=== PATIENT | male | born 1960 | race Caucasian/White ===

== ENCOUNTER 2024-05-15 14:37 | Emergency (ER) | payer OTHER, SELFPAY ==
[2024-05-15 14:42] VITALS: BP 145/78
[2024-05-15 14:58] LABS: % Basophils 0.6 % (0-2); % Immature Granulocytes 0.2 % (0-0.5); % Lymphocytes 14.1 % (20.5-51.1); % Monocytes 5.2 % (1.7-9.3); % Neutrophils 77.9 % (42.2-75.2); Absolute Basophils 0.1 10^3/uL (0-0.2); Absolute Eosinophils 0.3 10^3/uL (0-0.7); Absolute Lymphocytes 1.8 10^3/uL (1.2-3.4); Absolute Monocytes 0.7 10^3/uL (0.1-0.6); Absolute Neutrophils 9.8 10^3/uL (1.4-6.5); Hematocrit 45.7 % (39.0-52.0); Hemoglobin 16.2 g/dL (13.0-18.0); Mean Corp Hgb Conc. 35.4 g/dL (33.0-37.0); Mean Corpuscular Volume 87.5 fL (80.0-94.0); Mean Platelet Volume 10.1 fL (7.4-10.4); Nucleated Red Blood Cells % 0 % (-); Platelet Count 165 10^3/uL (130-400); Red Blood Cell Count 5.22 10^6/uL (4.70-6.10); White Blood Cell Count 12.5 10^3/uL (4.8-10.8)
[2024-05-15 15:13] LABS: ALT (SGPT) 58 U/L (0-50); AST (SGOT) 34 U/L (17-59); Albumin 4.4 g/dl (3.5-5.0); Alkaline Phosphatase 68 U/L (38-126); Blood Urea Nitrogen 24 mg/dl (9-20); Calcium 9.5 mg/dl (8.4-10.2); Carbon Dioxide 28 mmol/L (22-30); Chloride 105 mmol/L (98-107); Glucose 121 mg/dl (70-99); Potassium 4.7 mmol/L (3.5-5.1); Sodium 142 mmol/L (135-145); Total Bilirubin 1.7 mg/dl (0.2-1.3); Total Protein 7.3 g/dl (6.3-8.2); eGFR > 60.00
[2024-05-15 15:23] LABS: Troponin I < 0.012 ng/ml
[2024-05-15 17:04] VITALS: BP 147/88
--- NOTE | 2024-05-15 17:54 | ED.GENMED ---
History of Present Illness
General
Chief Complaint: Chest Pain
Source: patient
Exam Limitations: none
Time Seen by Provider: 05/15/24 17:02
Nursing documentation reviewed up to this point in time: agreed with
History of Present Illness
History of Present Illness:
The patient is a pleasant 64-year-old male with history GERD, asthma presenting to the emergency department for evaluation of chest pain.. He describes it as a tightness in his left chest, which is essentially constant and not exertional or
pleuritic in nature. Patient states he gets a similar chest pain every spring and fall season and is wondering if it is allergy related. However � this time he has a little bit of pain into his left arm and left neck, which made him concerned as he
has not had those symptoms before. Patient denies any associated fever, cough, shortness of breath, lightheadedness, diaphoresis, or back pain. He has been able to exercise at the gym to full capacity and was golfing yesterday and remained
asymptomatic. Patient states he was seen by a card placer a few years ago with a negative work up.
Patient states his father did have a heart attack in his 70s, otherwise no known family history.
Past History
Past History
ED Past Medical History: Asthma and GERD
Social History
Tobacco: Non-smoker
Personal:
Living: with family
Employment: Employed
Review of Systems
Review of Systems
Allergies reviewed?: Yes
All Other Systems: ROS reviewed and negative except as documented in HPI and ROS
Phy Exam
Physical Exam
Physical Exam:
Vitals: Hypertensive, otherwise vital signs stable. Afebrile
General: Patient is well appearing, no acute distress
Skin: Warm and dry, no rashes or lesions
Head: Normocephalic, atraumatic
Eyes: Sclera nonicteric. EOMs intact. No nystagmus.
Throat: Protecting airway
Neck: Normal ROM, no cervical spine tenderness, no meningismus. No JVD
Cardiac: Regular rate and rhythm, no murmurs. No reproducible chest wall tenderness. No rash
Pulm: Normal respiratory effort, no wheezes, rales, rhonchi heard on exam.
Abdomen: No abdominal tenderness.
Extremities: No evidence of cyanosis or edema. 2+ radial pulses bilaterally.
Neuro: AAOx3. Grossly intact.
Psychiatric: Normal affect.
Scores
Heart Score for Chest Pain Patients
STEMI patient?: No
History: Slightly or Non-Suspicious
ECG: Normal
Age: >45 - <65 years
Risk Factors: 1 or 2 Risk Factors
Troponin: </= Normal Limit
Heart Score for Chest Pain Patients: 2
Heart Score Risk: 2.5% MACE over next 6 weeks
Course
Orders/Labs/Results
Orders:
Orders
05/15/24 14:38
Electrocardiogram (*1) Urgent
Reason for Study: Chest Pain
EKG- Treatment ONCE
05/15/24 14:48
Complete Blood Count/With Diff Urgent
Comprehensive Metabolic Panel Urgent
Troponin I Urgent
05/15/24 17:21
EKG- Treatment ONCE
05/15/24 17:22
CR Chest - 2 Views Urgent
Comment:
Reason For Exam: left sided chest tightness
05/15/24 17:46
Troponin I Urgent
05/15/24 17:50
Electrocardiogram (*1) Urgent
Reason for Study: Chest Pain
Abnormal Lab Results
05/15/24
14:48
WBC 12.5 H 10^3/uL
(4.8-10.8)
Absolute Neuts (auto) 9.8 H 10^3/uL
(1.4-6.5)
Absolute Monos (auto) 0.7 H 10^3/uL
(0.1-0.6)
Neutrophils % 77.9 H %
(42.2-75.2)
Lymphocytes % 14.1 L %
(20.5-51.1)
BUN 24 H mg/dl
(9-20)
Glucose 121 H mg/dl
(70-99)
Total Bilirubin 1.7 H mg/dl
(0.2-1.3)
ALT 58 H U/L
(0-50)
05/15/24 14:48
05/15/24 14:48
Vital Signs
Initial and Last Documented VS:
Initial Vital Signs
Temp Pulse Resp BP Pulse Ox
98.0 F 69 16 145/78 98
05/15/24 14:42 05/15/24 14:42 05/15/24 14:42 05/15/24 14:42 05/15/24 14:42
Last Documented Vital Signs
Temp Pulse Resp BP Pulse Ox
98.0 F 69 20 147/88 95
05/15/24 14:42 05/15/24 17:45 05/15/24 17:45 05/15/24 17:04 05/15/24 17:45
MDM/Problems Addressed
Differential Diagnosis Includes:
Not limited to: muscular strain, pericarditis, asthma exacbertion, hay fever, acute coronary syndrome, zoster, etc
MDM/Problems Addressed:
64 y.o male w/ history as documented presenting with atypical chest pain. No exertional or pleuritic component to symptoms. No associated shortness of breath, lightheadedness, diaphoresis. No fever or cough. Vitals and physical exam as above.
Patient very well appearing, in no distress. Heart is regular, lungs are clear. He has no reproducibl chest tenderness. No carotid tenderness bilaterally. He has 2+ radial pulses bilaterally and no evidence of LE edema on exam. Basic labs were sent
off in triage significant for a leukocytosis of 12.5. No other clinically significant abnormalities. Troponin undetectable. EKG without the acute ischemic changes. Ultimately � very low vision for acute coronary syndrome or aortic dissection. Do not
suspect infectious process, including pneumonia. Will trend troponin and repeat EKG as well as obtain chest x-ray for complete evaluation. Anticipate discharge.
Update: Chest x-ray reviewed by me without acute abnormalities � no evidence of pneumonia or pneumothorax. No widened mediastinum Troponin negative x 2 with no EKG changes. Patient remains essentially asymptomatic, well and comfortable appearing.
Work up in ED negative. Very low suspicion for emergent cardio/pulmonary process. Patient will be discharged home with cardiology follow up and close return precautions. Case discussed w/ attending position. Patient is comfortable with this plan.
Chronic conditions affecting care:
N/A
Acute Exacerbation and/or Progression of Chronic Illness:
N/A
*Radiology
Radiology exam reviewed: preliminary read by ED provider (CXR reviewed by me - no acute abnormalities)
*Pulse Oximetry
Patient hypoxic: no
*EKG
Interpreted by ED Provider?: Yes
EKG Intrepretation Date: 05/15/24
Interpretation: normal
Comparison EKG: no comparison EKG present
Heart Rate: 63
Rate: normal
Rhythm: sinus
[place]: normal axis
Interval: normal interval
QRS Pattern: normal QRS
Ischemia: no ischemia
*Top Lift Nailer Interpretation
Rate: normal
Interpretation: normal
Heart Rate: 68
Rhythm: sinus
*Critical Care Note
Total Time (30-74mins, 75-104mins- exclusive of procedures): Not Applicable
ED Attending Note
-
Portions of this chart may have been created with voice recognition software.� Occasional wrong word or��sound alike� substitutions may have occurred due to the inherent limitations of voice recognition software.
Discharge Plan
Departure
Patient Disposition: Home (Routine Discharge)
Date of Disposition: 05/15/24
Time of Disposition: 18:44
Patient with high blood pressure during this ER visit?: Yes
Condition: Good
Discharge Problem:
Chest pain
Instructions: Chest pain, Chest Pain PCP Follow Up, BLOOD PRESSURE
Referrals:
Toribio Santiago MD [Active] - Next open appointment
Niraj Aparicio DO [Family Provider] - Follow up in 2-3 days
Activity Restrictions/Additional Instructions:
Return to the emergency department with any high fevers, productive cough, exertional chest pain or shortness of breath, nausea, lightheadedness/dizziness, severe back pain, significant weakness, worsening in any symptoms or other concerns
-You did have a mildly elevated white blood cell count on the labs performed the emergency department. You should have this rechecked with your primary care to ensure trending down
-You can take Tylenol/Motrin as needed for pain. Continue to use your inhaler as prescribed.
-It is important stay well-hydrated.
-Follow-up with primary care for further evaluation/management to ensure that symptoms are improving. You should also see a card placer for further management. You may require further testing for this. Contact information for card placer has
been provided for you above.
Monitor your symptoms closely and return to the emergency department with any acute worsening/new symptoms or any other concerns
Interventions
Interventions:
*Risk Screen - Suicide Last Done: 05/15/24 14:42
*Neglect/Abuse Screening Last Done: 05/15/24 14:42
*Nursing Disposition Last Done: 05/15/24 18:57
ED- Cardiac Assessment Last Done: 05/15/24 17:09
Discharge Date and Time
Discharge Date/Time: 05/15/24 18:58
Print Language: KITTITIAN
[2024-05-15 18:19] LABS: Troponin I < 0.012 ng/ml
== END 2024-05-15 18:58 | disposition home or self-care (01) ==
LOC: EMR 14:37
PROVIDERS: Emergency Medicine; Physician Assistant; EMERGENCY PHYSICIAN Emergency Medicine; FAMILY PHYSICIAN Family Medicine
DX: R07.89 Other chest pain (principal); K21.9 Gastro-esophageal reflux disease without esophagitis; J45.909 Unspecified asthma, uncomplicated; Z82.49 Family history of ischemic heart disease and other diseases of the circulatory system
CPT/HCPCS: 99283; 71046; 80053; 84484; 85025; 93005